=== PATIENT | female | born 1960 | race Caucasian/White ===

== ENCOUNTER 2016-09-10 18:44 | Emergency (ER) | payer OTHER ==
[2016-09-10 18:49] VITALS: BP 127/82; PULSE 108; TEMP 98.4; BMI 21.0
--- NOTE | 2016-09-10 19:05 | PDOC ---
History of Present Illness - General History Source: Patient Exam Limitations: No Limitations - History of Present Illness Initial Comments: 09/10/16 19:36 The patient is a 56 year old female with no pertinent history who presents to the ED with complaints of rash on her upper back and shoulders. The patient states that the symptoms began about a week ago, initially went away on its own but came back a few days later with warmth and tenderness and accompanied nausea and chills. She denies any recent illness, fevers, nausea, vomiting, diarrhea, cough, shortness of breath, chest pain. PAST MEDICAL HISTORY: no significant history PAST SURGICAL HISTORY: no significant history FAMILY HISTORY: no pertinent history SOCIAL HISTORY: Pt lives with family and is employed. MEDICATIONS: reviewed ALLERGIES: As per nursing notes General: No fevers or chills, no weakness, no weight loss HEENT: No change in vision. No sore throat,. No ear pain CardioVascular: No chest pain or shortness of breath Respiratory:No cough, or wheezing. Gastrointestinal: no nausea, vomiting, diarrhea or constipation, No rectal bleeding Genitourinary: No dysuria, hematuria, or frequency Musculoskeletal: No joint or muscle pain or swelling Neurologic: No headache, vertigo, dizziness or loss of consciousness Psychiatric: nor depression Skin: +rash No easy bruising Endocrine: no increased thirst or abnormal weight change Allergic: no skin or latex allergy All other systems reviewed and normal GENERAL: The patient is awake, alert, and fully oriented, in no acute distress. HEAD: Normal with no signs of trauma. EYES: Pupils equal, round and reactive to light, extraocular movements intact, sclera anicteric, conjunctiva clear. NECK: Tenderness and enlargement of post cervical chain. Patchy overlying erythema of posterior neck and upper shoulder. Increase in warmth with mild tenderness, no palpable swelling EXTREMITIES: Normal range of motion, no edema. NEUROLOGICAL: Normal speech, normal gait. PSYCH: Normal mood, normal affect. SKIN: Warm, Dry, normal turgor, no rashes or lesions noted. <Namrata Henderson - Last Filed: 09/10/16 19:36> - General History Source: Patient Exam Limitations: No Limitations - History of Present Illness Initial Comments: 09/10/16 19:49 A portion of this note was documented by scribe services under my direction. I have reviewed the details of the note, within reason, and agree with the documentation. The case summary and management plan written by me. Assessment and plan: This is a 56-year-old female who comes in complaining of a rash to her posterior neck and upper shoulder area. On exam it appears that this is most likely a superficial strep or cellulitis type infection. Patient started on clindamycin which will cover her for both strep as well as MRSA. Patient did not want to take the antibiotic and wanted to give the rash and another 24 hours to see if it got worse or improved. Patient has a primary care doctor she can follow-up with however he did call a prescription into her pharmacy in case she does decide to take prescription.. <Storm Lundberg I - Last Filed: 09/10/16 19:50> - General Chief Complaint: Pain, Acute Stated Complaint: NECK/SHOULDER PAIN Time Seen by Provider: 09/10/16 19:03 Past History <Namrata Henderson - Last Filed: 09/10/16 19:36> - Past Medical History Suicide Attempt (Hx): No Thyroid Disease: Yes Other medical history: CERVICAL RADICULOPATHY - Immunization History Immunization Up to Date: Yes - Psycho/Social/Smoking Cessation Hx Anxiety: No Suicidal Ideation: No Smoking Status: No Smoking History: Never smoked Have you smoked in the past 12 months: No Number of Cigarettes Smoked Daily: 0 Hx Alcohol Use: No Drug/Substance Use Hx: No Substance Use Type: None <Storm Lundberg I - Last Filed: 09/10/16 19:50> - Past Medical History Allergies/Adverse Reactions: Allergies Allergy/AdvReac Type Severity Reaction Status Date / Time Sulfa (Sulfonamide Allergy Unknown Verified 03/06/15 13:09 Antibiotics) [Sulfa(Sulfonamide Antibiotics)] Home Medications: Ambulatory Orders Thyroid,Pork [Nature-Throid] 16.25 mg PO DAILY 11/01/11 Clindamycin [Cleocin -] 300 mg PO TID #21 capsule 09/10/16 Review of Systems - Review of Systems Able to Perform ROS?: Yes Comments:: 09/10/16 19:36 All Other Systems: Reviewed and Negative <Namrata Henderson - Last Filed: 09/10/16 19:36> *Physical Exam - Vital Signs Last Vital Signs Temp Pulse Resp BP Pulse Ox 98.4 F 108 H 16 127/82 98 09/10/16 18:46 09/10/16 18:46 09/10/16 18:46 09/10/16 18:46 09/10/16 18:46 <Namrata Henderson - Last Filed: 09/10/16 19:36> - Vital Signs Last Vital Signs Temp Pulse Resp BP Pulse Ox 98.4 F 108 H 16 127/82 98 09/10/16 18:46 09/10/16 18:46 09/10/16 18:46 09/10/16 18:46 09/10/16 18:46 <Storm Lundberg I - Last Filed: 09/10/16 19:50> *DC/Admit/Observation/Transfer - Attestations Scribe Attestion: 09/10/16 19:41 Documentation prepared by Namrata Henderson, acting as medical underwriter for Storm Lundberg MD. <Namrata Henderson - Last Filed: 09/10/16 19:36> - Discharge Dispostion Admit: No <Storm Lundberg I - Last Filed: 09/10/16 19:50> Diagnosis at time of Disposition: Cellulitis of neck - Discharge Dispostion Disposition: HOME Condition at time of disposition: Stable - Prescriptions Prescriptions: Clindamycin [Cleocin -] 300 mg PO TID #21 capsule - Referrals Referrals: Ivette Thrasher [Primary Care Provider] - - Patient Instructions Additional Instructions: If you develop any worsening symptoms, persistent fever over 101, increasing redness or pain get the prescription filled and take as directed. The prescription may irritate her stomach so make sure you don't take it on an empty stomach. In addition to that it does alter the beneficial bacteria in your intestinal system so get some yogurt and eat some yogurt every day that your on the antibiotic. Return to the emergency department immediately with ANY new, persistent or worsening symptoms. Continue any medications as previously prescribed by your physician. You should follow up with your primary doctor as soon as possible regarding today's emergency department visit. . Please make sure your doctor reviews the results of your emergency evaluation. Thank you for coming to the Emergency Department today for your care. It was a pleasure to see you today. Please note that your evaluation is INCOMPLETE until you follow-up with your doctor.
== END 2016-09-10 19:32 | disposition home or self-care (01) ==
LOC: FER 18:44
DX: L03.221 Cellulitis of neck (principal); E07.9 Disorder of thyroid, unspecified; M54.12 Radiculopathy, cervical region
CPT/HCPCS: 99282-25

== ENCOUNTER 2017-09-01 20:11 | Emergency (ER) | payer OTHER ==
--- NOTE | 2017-09-01 20:20 | PDOC ---
History of Present Illness - General History Source: Patient Exam Limitations: No Limitations - History of Present Illness Initial Comments: 09/01/17 20:35 The patient is a 57 year old female with no significant PMH who presents to the emergency department with a sudden onset of left ear pain approximately this morning. The patient reports putting alcohol in her ears after getting [place] of [place] [facility] [place] does when she felt left inner ear pain. She also reports some nasal congestion and cough over the past month. The patient denies sore throat. She denies taking any medications for pain relief. The patient denies chest pain, shortness of breath, headache and dizziness. Denies fever, chills, nausea, vomit, diarrhea and constipation. Denies dysuria, frequency, urgency and hematuria. Review of Systems: General: No fevers or chills, no weakness, no weight loss HEENT: (+) Left ear pain. (+) Nasal congestion. No change in vision. No sore throat. Cardiovascular: No chest pain or shortness of breath Respiratory: (+) Cough. No wheezing. Gastrointestinal: no nausea, vomiting, diarrhea or constipation, No rectal bleeding Genitourinary: No dysuria, hematuria, or frequency Musculoskeletal: No joint or muscle pain or swelling Neurologic: No headache, vertigo, dizziness or loss of consciousness Psychiatric: nor depression Skin: No rashes or easy bruising Endocrine: no increased thirst or abnormal weight change Allergic: no skin or latex allergy All other systems reviewed and normal Exam: GENERAL: The patient is awake, alert, and fully oriented, in no acute distress. HEAD: Normal with no signs of trauma. EYES: Pupils equal, round and reactive to light, extraocular movements intact, sclera anicteric, conjunctiva clear. ENT: (+) Left external canal of ear mildly erythematous. No discharge, no exudates. TMs intact. EXTREMITIES: Normal range of motion, no edema. NEUROLOGICAL: Normal speech, normal gait. PSYCH: Normal mood, normal affect. SKIN: Warm, Dry, normal turgor, no rashes or lesions noted. <Toño Cohn - Last Filed: 09/01/17 20:35> - General History Source: Patient Exam Limitations: No Limitations - History of Present Illness Initial Comments: A portion of this note was documented by scribe services under my direction. I have reviewed the details of the note, within reason, and agree with the documentation. The case summary and management plan written by me. 09/01/17 20:37 Assessment and plan: This is a 57-year-old female comes in complaining of left ear discomfort. Patient does swim a fair amount and said she doesn't x-ray or with alcohol after swimming when she put the alcohol and her ear she said it was uncomfortable. Patient otherwise is healthy denied any fevers. Patient does have some mild congestion however on my exam the tympanic membrane was normal there was some mild erythema of the external canal but otherwise a normal exam. Patient was reassured told to take Tylenol or Motrin for the pain and follow-up with her doctor if not improved <Storm Lundberg I - Last Filed: 09/01/17 20:38> - General Chief Complaint: Ear Problem Stated Complaint: LT EAR PAIN Time Seen by Provider: 09/01/17 20:13 Past History <Toño Cohn - Last Filed: 09/01/17 20:35> - Past Medical History COPD: No Thyroid Disease: Yes - Immunization History Immunization Up to Date: Yes - Suicide/Smoking/Psychosocial Hx Smoking Status: No Smoking History: Never smoked Have you smoked in the past 12 months: No Number of Cigarettes Smoked Daily: 0 Hx Alcohol Use: No Drug/Substance Use Hx: No Substance Use Type: None <Storm Lundberg I - Last Filed: 09/01/17 20:38> - Past Medical History Allergies/Adverse Reactions: Allergies Allergy/AdvReac Type Severity Reaction Status Date / Time Sulfa (Sulfonamide Allergy Unknown Verified 03/06/15 13:09 Antibiotics) [Sulfa(Sulfonamide Antibiotics)] Home Medications: Ambulatory Orders Thyroid,Pork [Nature-Throid] 16.25 mg PO DAILY 11/01/11 *Physical Exam - Vital Signs Last Vital Signs Temp Pulse Resp BP Pulse Ox 98.2 F 90 16 126/79 98 09/01/17 20:12 09/01/17 20:12 09/01/17 20:12 09/01/17 20:12 09/01/17 20:12 <Toño Cohn - Last Filed: 09/01/17 20:35> *DC/Admit/Observation/Transfer - Attestations Scribe Attestion: 09/01/17 20:35 Documentation prepared by Toño Cohn, acting as faculty i on call medical assistant for Storm Lundberg MD. <Toño Cohn - Last Filed: 09/01/17 20:35> - Discharge Dispostion Admit: No <Storm Lundberg I - Last Filed: 09/01/17 20:38> Diagnosis at time of Disposition: Left ear pain - Discharge Dispostion Disposition: HOME Condition at time of disposition: Stable - Referrals Referrals: ON STAFF,NOT [Primary Care Provider] - - Patient Instructions Additional Instructions: You can take Tylenol or Motrin if needed for pain. Return to the emergency department immediately with ANY new, persistent or worsening symptoms. Continue any medications as previously prescribed by your physician. You should follow up with your primary doctor as soon as possible regarding today's emergency department visit. . Please make sure your doctor reviews the results of your emergency evaluation. Thank you for coming to the Emergency Department today for your care. It was a pleasure to see you today. Please note that your evaluation is INCOMPLETE until you follow-up with your doctor. - Post Discharge Activity
[2017-09-01 20:25] VITALS: BP 126/79; PULSE 90; TEMP 98.2; BMI 21.0
== END 2017-09-01 20:35 | disposition home or self-care (01) ==
LOC: FER 20:11
DX: H92.02 Otalgia, left ear (principal); E07.9 Disorder of thyroid, unspecified
CPT/HCPCS: 99281-25